=== PATIENT | female | born 1975 | race Two or more races ===

== ENCOUNTER 2019-01-25 08:39 | Outpatient (CLI) | payer OTHER ==
[~2019-01-25 08:39] MED LIST: ALLEGRA ALLERG180 MG PO; ATENOLOL50 MG PO; COZAAR100 MG; HYZAAR 100/25 T1 TAB PO; OSEL75CA PO; SYNTHROID50 MCG; ZITHROMAX200 MG PO
== END 2019-01-25 08:47 | disposition home or self-care (01) ==
LOC: SONOGRAMA 08:39 → MAMO-SONO 13:15
DX: R10.9 Unspecified abdominal pain (principal); N23 Unspecified renal colic

== ENCOUNTER 2019-04-05 10:40 | Emergency (ER) | payer OTHER ==
[~2019-04-05] VITALS: Ht 167.6 cm; Wt 67.1 kg
== END 2019-04-05 15:15 | disposition home or self-care (01) ==
LOC: ER 10:40
DX: N20.0 Calculus of kidney (principal); R10.32 Left lower quadrant pain

== ENCOUNTER 2019-10-20 08:58 | Emergency (ER) | payer OTHER ==
[~2019-10-20] VITALS: Ht 167.6 cm; Wt 71.7 kg
[2019-10-20] MEDS ORDERED: CLONAZEPAM0.5 MG (09:16)
== END 2019-10-20 15:40 | disposition home or self-care (01) ==
LOC: ER 08:58
DX: N20.0 Calculus of kidney (principal)

== ENCOUNTER 2019-11-04 08:41 | Emergency (ER) | payer OTHER ==
[~2019-11-04] VITALS: Ht 167.6 cm; Wt 71.2 kg
[~2019-11-04 08:41] MED LIST changes: +CLONAZEPAM0.5 MG
== END 2019-11-04 16:24 | disposition home or self-care (01) ==
LOC: ER 08:41
DX: R10.32 Left lower quadrant pain (principal)

== ENCOUNTER → 2019-11-25 | Outpatient (CLI) | payer OTHER | END | disposition home or self-care (01) | LOC: RAD 10:53 | DX: N20.0 Calculus of kidney (principal); Z01.811 Encounter for preprocedural respiratory examination ==

== ENCOUNTER → 2019-12-25 | Emergency (ER) | payer OTHER ==
[~2019-12-25] VITALS: Ht 167.6 cm; Wt 68.0 kg
== END | disposition home or self-care (01) ==
LOC: ER 14:12
DX: N39.0 Urinary tract infection, site not specified (principal)

== ENCOUNTER 2020-01-30 14:20 | Outpatient (CLI) | payer OTHER | END 2020-01-30 14:22 | disposition home or self-care (01) | LOC: RAD 14:20 | DX: N20.0 Calculus of kidney (principal) ==

== ENCOUNTER → 2020-04-16 12:48 | Outpatient (CLI) | payer OTHER | END | disposition home or self-care (01) | LOC: RAD 12:48 | DX: N20.0 Calculus of kidney (principal) ==